=== PATIENT | female | born 1930 | race Caucasian/White ===

== ENCOUNTER 2019-04-13 20:54 | Inpatient (IN) | payer MEDICARE, OTHER ==
[~2019-04-13] VITALS: Ht 162.6 cm; Wt 47.6 kg
[2019-04-13] MEDS ORDERED: IV NORMAL SALINE 1000ML BAG 1,000 ML IV ONE (21:30)
[2019-04-13 21:35] LABS: BASO # 0.1 x10^3/uL (0.0-0.2); BASO % 1 % (0-3); EOS % 0 % (0-3); HEMATOCRIT 26.8 % (36.0-47.0); LYMPH # 0.9 x10^3/uL (1.0-4.8); LYMPH % 11 % (24-48); MEAN CORPUSCULAR HEMOGLOBIN 32 pg (25-35); MEAN CORPUSCULAR HGB CONC 34 g/dL (31-37); MEAN CORPUSCULAR VOLUME 94 fL (79-100); MONO # 0.3 x10^3/uL (0.0-1.1); MONO % 4 % (0-9); NEUT # 6.7 x10^3/uL (1.8-7.7); NEUT % 84 % (31-73); PLATELET COUNT 360 x10^3/uL (140-400); RED BLOOD COUNT 2.85 x10^6/uL (3.50-5.40); RED CELL DISTRIBUTION WIDTH 16.2 % (11.5-14.5)
[2019-04-13 21:42] LABS: CALCIUM 8.8 mg/dL (8.5-10.1); CREATININE 0.7 mg/dL (0.6-1.0); GFR 79.2; POTASSIUM 3.4 mmol/L (3.5-5.1)
--- NOTE | 2019-04-13 22:20 | PHYS DOC ---
Past Medical History Past Medical History: Seizure, Other Additional Past Medical Histor: PARKINSONS Past Surgical History: Hysterectomy, Other Additional Past Surgical Histo: COLOSTOMY Alcohol Use: None Drug Use: None Adult General Chief Complaint Chief Complaint: SEIZURE HPI HPI Patient is a 89 year old male with history of seizure disorder with recent two- week hospital stay at [facility] per epilepsy who presents with seizure episode during transport from [facility] to senior care. This is the second seizure the patient during the transportation process. After the first seizure, the patient was brought to where she was given a dose of epilepsy medication and then placed in ambulance when she had a second generalized seizure. 10 Milligrams of Versed was given by EMS and the patient was brought to [facility]. On exam, the patient's obtunded story depression and sluggish pupils. Patient wearing supplemental oxygen to maintain O2 saturation greater than 95%. She is limited based upon the patient's presentations. Additional history obtained from family members and medical record. Early member states patient seizures were fairly well-controlled prior to transfer but that the motion of the ambulance is know to triggers the patient seizures.[] Review of Systems Review of Systems ROS as per HPI All other systems were reviewed and found to be within normal limits, except as documented in this note. Current Medications Current Medications Current Medications Medications (Trade) Dose Ordered Sig/Alex Start Time Stop Time Status Last Admin Dose Admin Sodium Chloride 1,000 ml @ 1,000 mls/hr 1X ONCE 04/13/19 21:30 04/13/19 22:29 04/13/19 21:32 1,000 MLS/HR Allergies Allergies Allergies Coded Allergies Type Severity Reaction Last Updated Verified No Known Drug Allergies 04/13/19 No Physical Exam Physical Exam Constitutional: Pale, obtunded with respiratory depression.[] HENT: Normocephalic, atraumatic, bilateral external ears normal, oropharynx moist, nose normal. [] Eyes: PERRLA, EOMI, conjunctiva normal. [] Neck: Normal range of motion, no tenderness, supple. [] Cardiovascular:Heart rate regular rhythm, no murmur [] Lungs & Thorax: Respiratory depression. [] Abdomen: Bowel sounds normal, soft, no tenderness. [] Skin: Warm, dry. [] Back: No tenderness. [] Extremities: No tenderness, no edema. [] Neurologic: Obtunded, localizes pain. [] Current Patient Data Vital Signs Vital Signs Date Time Temp Pulse Resp B/P (MAP) Pulse Ox O2 Delivery O2 Flow Rate FiO2 04/13/19 20:54 98.0 75 20 113/53 (73) 99 Nasal Cannula 4.0 98.0 Lab Values Laboratory Tests Test 04/13/19 21:15 04/13/19 21:20 Glucose (Fingerstick) 89 mg/dL (70-99) White Blood Count 8.0 x10^3/uL (4.0-11.0) Red Blood Count 2.85 x10^6/uL (3.50-5.40) L Hemoglobin 9.0 g/dL (12.0-15.5) L Hematocrit 26.8 % (36.0-47.0) L Mean Corpuscular Volume 94 fL (79-100) Mean Corpuscular Hemoglobin 32 pg (25-35) Mean Corpuscular Hemoglobin Concent 34 g/dL (31-37) Red Cell Distribution Width 16.2 % (11.5-14.5) H Platelet Count 360 x10^3/uL (140-400) Neutrophils (%) (Auto) 84 % (31-73) H Lymphocytes (%) (Auto) 11 % (24-48) L Monocytes (%) (Auto) 4 % (0-9) Eosinophils (%) (Auto) 0 % (0-3) Basophils (%) (Auto) 1 % (0-3) Neutrophils # (Auto) 6.7 x10^3/uL (1.8-7.7) Lymphocytes # (Auto) 0.9 x10^3/uL (1.0-4.8) L Monocytes # (Auto) 0.3 x10^3/uL (0.0-1.1) Eosinophils # (Auto) 0.0 x10^3/uL (0.0-0.7) Basophils # (Auto) 0.1 x10^3/uL (0.0-0.2) Sodium Level 140 mmol/L (136-145) Potassium Level 3.4 mmol/L (3.5-5.1) L Chloride Level 102 mmol/L (98-107) Carbon Dioxide Level 29 mmol/L (21-32) Anion Gap 9 (6-14) Blood Urea Nitrogen 3 mg/dL (7-20) L Creatinine 0.7 mg/dL (0.6-1.0) Estimated GFR (Cockcroft-Gault) 79.2 Glucose Level 102 mg/dL (70-99) H Calcium Level 8.8 mg/dL (8.5-10.1) Troponin I Quantitative < 0.017 ng/mL (0.000-0.055) Laboratory Tests 04/13/19 21:20 Laboratory Tests 04/13/19 21:20 EKG EKG [EKG: reviewed ] Radiology/Procedures Radiology/Procedures [] Course & Med Decision Making Course & Med Decision Making Pertinent Labs and Imaging studies reviewed. (See chart for details) [Patient monitored in the emergency department for stabilization of vital signs. Medical records requested from [employer]. Labs reviewed. Will admit to the hospital service with anticipated neurology consult] Aprilon Disclaimer Dragon Disclaimer This electronic medical record was generated, in whole or in part, using a voice recognition dictation system. Departure Departure Impression: Primary Impression: Breakthrough seizure Disposition: ADMITTED INPATIENT Condition: STABLE Referrals: AMBAR FRANK (PCP) KEANU GORMAN DO Apr 13, 2019 22:20
[2019-04-13] MEDS ORDERED: ONDANSETRON PF 4 MG/2 ML VIAL. IV PRN (22:45)
[2019-04-13] MEDS: IV NORMAL SALINE 1000ML BAG 1,000 ML IV SCH (23:00)
--- NOTE | 2019-04-13 23:30 | NUR ---
The patient, PABLO LUCIA, 89 y/o, F admitted by LETY RODRÍGUEZ MD, was given written information regarding hospital policies, unit procedures and contact persons.
[2019-04-14 00:09] VITALS: BP 98/38
[2019-04-14] MEDS ORDERED: LEVO50TA PO (01:54)
[2019-04-14] MEDS ORDERED: CLOR3.75 PO (01:54)
[2019-04-14] MEDS ORDERED: LEXAPRO10 MG PO (01:54)
[2019-04-14] MEDS ORDERED: CEPH-263 PO (01:54)
[2019-04-14] MEDS ORDERED: METO-239 PO (01:54)
[2019-04-14] MEDS ORDERED: MEMA10TA PO (01:54)
[2019-04-14] MEDS ORDERED: CARB1TAB22 PO (01:54)
[2019-04-14] MEDS ORDERED: DONE10TA61 PO (01:54)
--- NOTE | 2019-04-14 02:41 | RAD ---
AP chest x-ray HISTORY: Unresponsive, hypoxia. FINDINGS: Heart size normal. Aortic arch calcified plaque. Coarsened diffuse pulmonary interstitial markings. No pneumothorax, pulmonary opacities or pleural effusions. Bones are unremarkable. IMPRESSION: Diffuse pulmonary coarse interstitial markings may represent mild interstitial edema, atypical infection or chronic interstitial lung disease. Electronically signed by: Saturnino Rangel MD (04/14/2019 2:37 AM) [facility]
[2019-04-14 03:46] VITALS: BP 124/47
[2019-04-14] MEDS ORDERED: LACO100T PO (03:56)
[2019-04-14 07:49] LABS: BASO # 0.1 x10^3/uL (0.0-0.2); BASO % 1 % (0-3); EOS # 0.1 x10^3/uL (0.0-0.7); EOS % 1 % (0-3); HEMATOCRIT 28.9 % (36.0-47.0); HEMOGLOBIN 9.3 g/dL (12.0-15.5); LYMPH % 16 % (24-48); MEAN CORPUSCULAR HEMOGLOBIN 31 pg (25-35); MEAN CORPUSCULAR HGB CONC 32 g/dL (31-37); MEAN CORPUSCULAR VOLUME 96 fL (79-100); MONO # 0.4 x10^3/uL (0.0-1.1); MONO % 6 % (0-9); NEUT # 5.1 x10^3/uL (1.8-7.7); NEUT % 76 % (31-73); PLATELET COUNT 348 x10^3/uL (140-400); RED BLOOD COUNT 3.01 x10^6/uL (3.50-5.40); RED CELL DISTRIBUTION WIDTH 16.4 % (11.5-14.5); WHITE BLOOD COUNT 6.7 x10^3/uL (4.0-11.0)
[2019-04-14 07:50] VITALS: BP 148/54
[2019-04-14] MEDS ORDERED: ONDANSETRON PF 4 MG/2 ML VIAL. IV PRN (08:00)
[2019-04-14 08:02] LABS: CALCIUM 8.8 mg/dL (8.5-10.1); CREATININE 0.5 mg/dL (0.6-1.0); GFR 116.7; POTASSIUM 3.5 mmol/L (3.5-5.1)
--- NOTE | 2019-04-14 08:22 | PDOC1 ---
History and Physical Date of Admission Date of Admission DATE: 04/14/19 TIME: 08:01 Identification/Chief Complaint Chief Complaint Hypoxia, seizures Source Source: Caregiver, Chart review, Patient History of Present Illness History of Present Illness Ms Recio is an 89 year old female with history of new recent seizure disorder, diverticulitis with recent bowel perforation and diverting colostomy in the past year, and Parkinson disease who presented to ED on 04/13/19 in the evening with acute hypoxia requiring 4L NCO2 to maintain 90% O2 saturations and reported seizure activity en-route to SNF. She was admitted to [facility] and underwent long-term video EEG monitoring showing several electrographic seizures characterized by facial twitching, left head and eye deviation with progression to more generalized tonic-clonic movements, lasting as long as 5 minutes requiring lorazepam. She continued to have seizures on levetiracetam 1500 mg twice a day and was subsequently switched to lacosamide 100 mg twice a day. She is no longer on the levetiracetam. She was sent to [facility], and then was transferred to [facility] [place] to be closer to family and had a seizure en route. This is the second seizure the patient during the transportation process. After the first seizure, the patient was brought to where she was given a dose of Vimpat oral and then placed in ambulance when she had a second generalized seizure. 10 mg midazolam administered by EMS en-route to [facility]. ED physician found patient obtunded with respiratory depression and sluggish pupils. Additional history obtained from family members and medical record. Family member states patient seizures were fairly well-controlled prior to transfer but that apparently motion of the ambulance is know to triggers the patient seizures. In ED found with CXR showing coarse interstitial markings, K of 3.4, Hb 9, troponin negative. K replaced. Patient is awakening well, still doesn't have an appetite. Past Medical History Cardiovascular: No pertinent hx Pulmonary: No pertinent hx CENTRAL NERVOUS SYSTEM: Other (Parkinson) GI: No pertinent hx Heme/Onc: No pertinent hx Hepatobiliary: No pertinent hx Psych: No pertinent hx Rheumatologic: No pertinent hx Infectious disease: No pertinent hx ENT: No pertinent hx Renal/: No pertinent hx Endocrine: No pertinent hx Dermatology: No pertinent hx Past Surgical History Past Surgical History: Hysterectomy, Colon Resection (With colostomy) Family History Family History: Family History Unknown Social History Smoke: No ALCOHOL: none Drugs: None Current Medications Current Medications Current Medications Sodium Chloride 1,000 ml @ 1,000 mls/hr 1X ONCE IV Last administered on 04/13/19at 21:32; Start 04/13/19 at 21:30; Stop 04/13/19 at 22:29; Status DC Ondansetron HCl (Zofran) 4 mg PRN Q8HRS PRN IV NAUSEA/VOMITING; Start 04/13/19 at 22:45; Stop 04/14/19 at 22:44 Sodium Chloride 1,000 ml @ 75 mls/hr [id number] IV Last administered on 04/13/19at 23:00; Start 04/13/19 at 22:45; Stop 04/14/19 at 22:44 Lacosamide 100 mg/ Dextrose 60 ml @ 120 mls/hr BID IV ; Start 04/14/19 at 09:00 Lorazepam (Ativan Inj) 2 mg 1X PRN IV seizure; Start 04/13/19 at 22:45 Active Scripts Active Reported Vimpat (Lacosamide) 100 Mg Tablet 100 Mg PO BID Synthroid (Levothyroxine Sodium) 50 Mcg Tablet 50 Mcg PO DAILYAC Metoprolol Succinate ( Xl ) (Metoprolol Succinate) 25 Mg Tab.er.24h 1 Tab PO DAILY 12.5 DAILY Namenda (Memantine Hcl) 10 Mg Tablet 1 Tab PO BID Lexapro (Escitalopram Oxalate) 10 Mg Tablet 1 Tab PO DAILY Aricept (Donepezil Hcl) 10 Mg Tablet 1 Tab PO QHS Clorazepate Dipotassium 3.75 Mg Tablet 3.75 Mg PO PRN PRN Keflex (Cephalexin) 250 Mg Capsule 1 Cap PO TID Carbidopa-Levodopa 25-100 Tab (Carbidopa/Levodopa) 1 Each Tablet 1 Each PO 4XDAY 1 TABLET 4 TIMES DAILY Allergies Allergies: Coded Allergies: No Known Drug Allergies (Unverified , 04/13/19) ROS General: YES: Fatigue, Malaise, Appetite; No: Chills, Night Sweats, Other PSYCHOLOGICAL ROS: YES: Depression, Disorientation, Memory difficulties; No: Anxiety, Behavioral Disorder, Concentration difficultie, Decreased libido, Hallucinations, Hostility, Irritablity, Mood Swings, Obsessive thoughts, Physical abuse, Sexual abuse, Sleep disturbances, Suicidal ideation, Other Eyes: No Blurry vision, No Decreased vision, No Double vision, No Dry eyes, No Excessive tearing, No Eye Pain, No Itchy Eyes, No Loss of vision, No P hotophobia, No Scotomata, No Uses contacts, No Uses glasses, No Other HEENT: No: Heacaches, Visual Changes, Hearing change, Nasal congestion, Nasal discharge, Oral lesions, Sinus pain, Sore Throat, Epistaxis, Sneezing, Snoring, Tinnitus, Vertigo, Vocal changes, Other ALLERGY AND IMMUNOLOGY: No: Hives, Insect Bite Sensitivity, Itchy/Watery Eyes, Nasal Congestion, Post Nasal Drip, Seasonal Allergies, Other Hematological and Lymphatic: No: Bleeding Problems, Blood Clots, Blood Transfusions, Brusing, Night Sweats, Pallor, Swollen Lymph Nodes, Other ENDOCRINE: No: Breast Changes, Galactorrhea, Hair Pattern Changes, Hot Flashes, Malaise/lethargy, Mood Swings, Palpitations, Polydipsia/polyuria, Skin Changes, Temperature Intolerance, Unexpected Weight Changes, Other Breast: No New/Changing Breast Lumps, No Nipple changes, No Nipple discharge, No Other Respiratory: No: Cough, Hemoptysis, Orthopnea, Pleuritic Pain, Shortness of breath, SOB with excertion, Sputum Changes, Stridor, Tachypnea, Wheezing, Other Cardiovascular: No Chest Pain, No Palpitations, No Orthopnea, No Paroxysmal Noc. Dyspnea, No Edema, No Lt Headedness, No Other Gastrointestinal: No Nausea, No Vomiting, No Abdominal Pain, No Diarrhea, No Constipation, No Melena, No Hematochezia, No Other Genitourinary: No Dysuria, No Frequency, No Incontinence, No Hematuria, No Retention, No Discharge, No Urgency, No Pain, No Flank Pain, No Other, No , No , No , No , No , No , No Musculoskeletal: Yes Gait Disturbance; No Joint Pain, No Joint Stiffness, No Joint Swelling, No Muscle Pain, No Muscular Weakness, No Pain In:, No Swelling In:, No Other Neurological: Yes Confusion, Yes Gait Disturbance, Yes Memory Loss, Yes Seizures, Yes Tremors; No Behavorial Changes, No Bowel/Bladder ControlChng, No Dizziness, No Headaches, No Impaired Coord/balance, No Numbness/Tingling, No Speech Problems, No Visual Changes, No Weakness, No Other Skin: No Dry Skin, No Eczema, No Hair Changes, No Lumps, No Mole Changes, No Mottling, No Nail Changes, No Pruritus, No Rash, No Skin Lesion Changes, No Other, No Acne Physical Exam General: Alert, Cooperative, No acute distress HEENT: Atraumatic, PERRLA, EOMI, Mucous membr. moist/pink Lungs: Clear to auscultation, Normal air movement Heart: S1S2, RRR, no gallops, no murmurs Abdomen: Normal bowel sounds, Soft, No tenderness, No hepatosplenomegaly, No masses Extremities: No clubbing, No cyanosis, No edema, Normal pulses, No tenderness/swelling Skin: No rashes, No breakdown, No significant lesion Neuro: Normal gait, Normal speech, Strength at 5/5 X4 ext, Normal tone, Sensation intact, Cranial nerves 3-12 NL, Reflexes 2+ Psych/Mental Status: Mental status NL, Mood NL Vitals Vitals Vital Signs Date Time Temp Pulse Resp B/P (MAP) Pulse Ox O2 Delivery O2 Flow Rate FiO2 04/14/19 03:46 97.5 62 18 124/47 (72) 99 Room Air 97.5 04/13/19 23:30 4.0 Labs Labs Laboratory Tests Test 04/13/19 21:15 04/13/19 21:20 Glucose (Fingerstick) 89 mg/dL (70-99) White Blood Count 8.0 x10^3/uL (4.0-11.0) Red Blood Count 2.85 x10^6/uL (3.50-5.40) Hemoglobin 9.0 g/dL (12.0-15.5) Hematocrit 26.8 % (36.0-47.0) Mean Corpuscular Volume 94 fL (79-100) Mean Corpuscular Hemoglobin 32 pg (25-35) Mean Corpuscular Hemoglobin Concent 34 g/dL (31-37) Red Cell Distribution Width 16.2 % (11.5-14.5) Platelet Count 360 x10^3/uL (140-400) Neutrophils (%) (Auto) 84 % (31-73) Lymphocytes (%) (Auto) 11 % (24-48) Monocytes (%) (Auto) 4 % (0-9) Eosinophils (%) (Auto) 0 % (0-3) Basophils (%) (Auto) 1 % (0-3) Neutrophils # (Auto) 6.7 x10^3/uL (1.8-7.7) Lymphocytes # (Auto) 0.9 x10^3/uL (1.0-4.8) Monocytes # (Auto) 0.3 x10^3/uL (0.0-1.1) Eosinophils # (Auto) 0.0 x10^3/uL (0.0-0.7) Basophils # (Auto) 0.1 x10^3/uL (0.0-0.2) Sodium Level 140 mmol/L (136-145) Potassium Level 3.4 mmol/L (3.5-5.1) Chloride Level 102 mmol/L (98-107) Carbon Dioxide Level 29 mmol/L (21-32) Anion Gap 9 (6-14) Blood Urea Nitrogen 3 mg/dL (7-20) Creatinine 0.7 mg/dL (0.6-1.0) Estimated GFR (Cockcroft-Gault) 79.2 Glucose Level 102 mg/dL (70-99) Calcium Level 8.8 mg/dL (8.5-10.1) Troponin I Quantitative < 0.017 ng/mL (0.000-0.055) Laboratory Tests Test 04/13/19 21:15 04/13/19 21:20 Glucose (Fingerstick) 89 mg/dL (70-99) White Blood Count 8.0 x10^3/uL (4.0-11.0) Red Blood Count 2.85 x10^6/uL (3.50-5.40) Hemoglobin 9.0 g/dL (12.0-15.5) Hematocrit 26.8 % (36.0-47.0) Mean Corpuscular Volume 94 fL (79-100) Mean Corpuscular Hemoglobin 32 pg (25-35) Mean Corpuscular Hemoglobin Concent 34 g/dL (31-37) Red Cell Distribution Width 16.2 % (11.5-14.5) Platelet Count 360 x10^3/uL (140-400) Neutrophils (%) (Auto) 84 % (31-73) Lymphocytes (%) (Auto) 11 % (24-48) Monocytes (%) (Auto) 4 % (0-9) Eosinophils (%) (Auto) 0 % (0-3) Basophils (%) (Auto) 1 % (0-3) Neutrophils # (Auto) 6.7 x10^3/uL (1.8-7.7) Lymphocytes # (Auto) 0.9 x10^3/uL (1.0-4.8) Monocytes # (Auto) 0.3 x10^3/uL (0.0-1.1) Eosinophils # (Auto) 0.0 x10^3/uL (0.0-0.7) Basophils # (Auto) 0.1 x10^3/uL (0.0-0.2) Sodium Level 140 mmol/L (136-145) Potassium Level 3.4 mmol/L (3.5-5.1) Chloride Level 102 mmol/L (98-107) Carbon Dioxide Level 29 mmol/L (21-32) Anion Gap 9 (6-14) Blood Urea Nitrogen 3 mg/dL (7-20) Creatinine 0.7 mg/dL (0.6-1.0) Estimated GFR (Cockcroft-Gault) 79.2 Glucose Level 102 mg/dL (70-99) Calcium Level 8.8 mg/dL (8.5-10.1) Troponin I Quantitative < 0.017 ng/mL (0.000-0.055) Images Images CXR - Diffuse pulmonary coarse interstitial markings may represent mild interstitial edema, atypical infection or chronic interstitial lung disease. VTE Prophylaxis Ordered VTE Prophylaxis Devices: No VTE Pharmacological Prophylaxi: Yes Assessment/Plan Assessment/Plan A/P: Acute hypoxic respiratory failure - with abnormal CXR, will r/o infection, checked procalcitonin. BNP only mildly elevated. Wean O2 as tolerated. Likely this was 2/2 midazolam administration Seizure - witness by EMS. Loaded with vimpat. Neurology consulted by ED. Does not sound like status epilepticus. Seizure activity can be difficult to assess with h/o Parkinson disease as well Parkinson disease - on QID sinemet as well as daily donepezil and memantine H/o diverticulitis with recent bowel perforation and diverting colostomy - ostomy output and care are WNL Hypokalemia - replaced oral and IV H/o C difficile - no further diarrhea, monitor FEN - General diet pending [employer]PERATOR evaluation PPX - lovenox DNR/DNI signed paperwork in house Dispo - will await neurology evaluation. I think further delaying her trip to SNF will expose her to hospital acquired infections, particularly with her history of c. difficile. I have discussed with her daughter that given her experience with EMS the past 2 transport cycles that she must lay her mother back and turn her head, wait for seizure activity to pass and will give lorazepam IA for seizures lasting greater than 5 minutes. She will be ok for private transport to SNF if neurology agrees. KEYANNA HARO MD Apr 14, 2019 08:22
[2019-04-14 08:34] LABS: ALBUMIN 2.5 g/dL (3.4-5.0); ALK PHOS 82 U/L (46-116); AST (SGOT) 13 U/L (15-37); DIRECT BILIRUBIN 0.1 mg/dL (0.0-0.2); TOTAL BILIRUBIN 0.3 mg/dL (0.2-1.0); TOTAL PROTEIN 6.5 g/dL (6.4-8.2)
[2019-04-14 08:35] LABS: ALT (SGPT) < 6 U/L (14-59)
[2019-04-14] MEDS ORDERED: LACOSAMIDE 100 MG in IV DEXTROSE 5% 50 ML IV SCH (09:00)
[2019-04-14] MEDS ORDERED: METOPROLOL SUCC 24HR ER 25 MG TAB.ER.24H. PO SCH (09:00)
[2019-04-14] MEDS ORDERED: LACOSAMIDE 50 MG TABLET PO SCH (09:00)
[2019-04-14] MEDS ORDERED: CITALOPRAM 20 MG TABLET. PO SCH (09:00)
[2019-04-14] MEDS ORDERED: MEMANTINE 10 MG TABLET. PO SCH (09:00)
[2019-04-14] MEDS: POTASSIUM CHLORIDE 10MEQ 100 ML IV SCH ×2 (09:52→11:06)
[2019-04-14] MEDS ORDERED: LEVOTHYROXINE 50 MCG TABLET PO SCH (10:30)
--- NOTE | 2019-04-14 10:47 | EKG ---
[facility] [address] [place] [address] Test Date: 2019-04-13 Test Time: 21:01:01 Pat Name: PABLO LUCIA Department: Room: Gender: F [employer] Architect: CIERRA ER : [id number] Requested By: KEANU GORMAN Order Number: [id number] Reading MD: Measurements Intervals [place] Rate: 80 P: 49 [place]: 158 QRS: -30 QRSD: 98 T: 56 QT: 440 QTc: 511 Interpretive Statements SINUS RHYTHM ABNORMAL LEFT AXIS DEVIATION PROLONGED QT ABNORMAL ECG No previous ECG available for comparison
[2019-04-14 11:00] VITALS: BP 154/57
[2019-04-14] MEDS: CARBIDOPA/LEVODOPA 25/100MG TABLET PO SCH ×2 (11:00→13:55)
[2019-04-14 11:01] VITALS: BP 148/54
[2019-04-14] MEDS: IV NORMAL SALINE 1000ML BAG 1,000 ML IV SCH (12:05)
--- NOTE | 2019-04-14 12:07 | PDOC2 ---
NEUROLOGY CONSULT Date of Admission Date of Admission DATE: 04/14/19 TIME: 11:58 Reason for Consult Reason for Consult: seizures Referring Physician Referring Physician: Dr. Kingston Source Source: Caregiver (daughter), Chart review, Patient History of Present Illness History of Present Illness The patient is an 89-year-old right-handed female who is being transported from [facility] to her [place] [facility] and she had a seizure. She had a seizure just after leaving [facility] and was brought to where they gave her some Versed and sent her on her way, but then she had another seizure. She received midazolam in the ambulance and was brought here. She has had no further seizures. Review of records from [facility] shows that the patient has history of Parkinson's and dementia. She was admitted to [facility] and underwent long-term video EEG monitoring showing several electrographic seizures characterized by facial twitching, left head and eye deviation with progression to more generalized tonic-clonic movements, lasting as long as 5 minutes requiring lorazepam. She continued to have seizures on levetiracetam 1500 mg twice a day and was subsequently switched to lacosamide 100 mg twice a day. She is no longer on the levetiracetam. She was sent to [facility], and then was transferred to [facility] to be closer to family and had a seizure en route. She was brought to the [facility] emergency department and spent 2 days there and was discharged to the [place] [facility] yesterday. There is no history of stroke. There is no history of recent head injury. Past Medical History Cardiovascular: HTN CENTRAL NERVOUS SYSTEM: Dementia, Seizure, Other (Parkinson's) GI: Other (diverticulitis) Renal/: UTI, Urinary Incontinence Past Surgical History Past Surgical History: Hysterectomy, Other (bowel surgery) Family History Family History: No pertinent hx Social History Social History , [place] [facility] resident, no alcohol or tobacco Current Medications Current Medications Current Medications Sodium Chloride 1,000 ml @ 1,000 mls/hr 1X ONCE IV Last administered on 04/13/19at 21:32; Start 04/13/19 at 21:30; Stop 04/13/19 at 22:29; Status DC Ondansetron HCl (Zofran) 4 mg PRN Q8HRS PRN IV NAUSEA/VOMITING; Start 04/13/19 at 22:45; Stop 04/14/19 at 08:01; Status DC Sodium Chloride 1,000 ml @ 75 mls/hr [id number] IV Last administered on 04/13/19at 23:00; Start 04/13/19 at 22:45; Stop 04/14/19 at 22:44 Lacosamide 100 mg/ Dextrose 60 ml @ 120 mls/hr BID IV ; Start 04/14/19 at 09:00; Stop 04/14/19 at 08:12; Status DC Lorazepam (Ativan Inj) 2 mg 1X PRN IV seizure; Start 04/13/19 at 22:45 Ondansetron HCl (Zofran) 4 mg PRN Q6HRS PRN IV NAUSEA/VOMITING; Start 04/14/19 at 08:00 Carbidopa/Levodopa (Sinemet 25/100) 1 tab QID PO Last administered on 04/14/19at 11:09; Start 04/14/19 at 09:00 Donepezil HCl (Aricept) 10 mg QHS PO ; Start 04/14/19 at 21:00 Levothyroxine Sodium (Synthroid) 50 mcg DAILY06 PO Last administered on 04/14/19at 11:09; Start 04/14/19 at 10:30 Memantine (Namenda) 10 mg BID PO Last administered on 04/14/19at 11:09; Start 04/14/19 at 09:00 Metoprolol Succinate (Toprol Xl) 25 mg DAILY PO Last administered on 04/14/19at 11:09; Start 04/14/19 at 09:00 Citalopram Hydrobromide (CeleXA) 20 mg DAILY PO Last administered on 04/14/19at 11:09; Start 04/14/19 at 09:00 Lacosamide (Vimpat) 100 mg BID PO Last administered on 04/14/19at 11:09; Start 04/14/19 at 09:00 Potassium Chloride/Water 100 ml @ 100 mls/hr Q1H IV Last administered on 04/14/19at 11:09; Start 04/14/19 at 08:00; Stop 04/14/19 at 09:59; Status DC Active Scripts Active Reported Vimpat (Lacosamide) 100 Mg Tablet 100 Mg PO BID Synthroid (Levothyroxine Sodium) 50 Mcg Tablet 50 Mcg PO DAILYAC Metoprolol Succinate ( Xl ) (Metoprolol Succinate) 25 Mg Tab.er.24h 1 Tab PO DAILY 12.5 DAILY Namenda (Memantine Hcl) 10 Mg Tablet 1 Tab PO BID Lexapro (Escitalopram Oxalate) 10 Mg Tablet 1 Tab PO DAILY Aricept (Donepezil Hcl) 10 Mg Tablet 1 Tab PO QHS Clorazepate Dipotassium 3.75 Mg Tablet 3.75 Mg PO PRN PRN Keflex (Cephalexin) 250 Mg Capsule 1 Cap PO TID Carbidopa-Levodopa 25-100 Tab (Carbidopa/Levodopa) 1 Each Tablet 1 Each PO 4XDAY 1 TABLET 4 TIMES DAILY Allergies Allergies: Coded Allergies: No Known Drug Allergies (Unverified , 04/13/19) ROS Review of System Negative for fever, chills, weight loss, shortness of breath, chest pain, indigestion, hematochezia, melena, and dysuria. Full 14-point review of systems is negative. Physical Exam Physical Examination General: Well-developed, well-nourished white female in no acute distress HEENT: Normocephalic and�atraumatic. Temporal arteries�pulsatile and nontender.� Neck: Supple without bruit, no meningismus� Musculoskeletal: Stability:�see neurologic. Gait exam:�see neurologic. Tone:�see neurologic.�Stre ngth:�see neurologic.� Neurological: Mental Status:�orientation, memory, attention span/concentration, language, fund of knowledge; oriented only to name, follows simple commands. Cranial Nerves:�Pupils equal and reactive to light, extraocular movements are�intact, visual lares are full to confrontation. Facial sensation is normal. There is no facial asymmetry. Vestibulo-ocular reflex is intact. Palate elevates and tongue protrudes in midline. All other cranial related problems are negative except as mentioned before.�Reflexes:�2+ and symmetric with flexor plantar responses. Motor:�4/5 strength with normal tone and bulk. Coordination:�Finger-nose finger and cxrv-[id number] testing are normal. Rapid alternating movements and fine finger movements are intact. She has a "yes" head tremor. Gait:�Not tested. Sensory:�Normal pinprick, vibration, light touch, proprioception.� Vitals VITALS Vital Signs Date Time Temp Pulse Resp B/P (MAP) Pulse Ox O2 Delivery O2 Flow Rate FiO2 04/14/19 11:09 64 148/54 04/14/19 07:50 98.5 18 94 Room Air 98.5 04/13/19 23:30 4.0 Labs Labs Laboratory Tests Test 04/13/19 21:15 04/13/19 21:20 04/14/19 07:25 04/14/19 08:45 Glucose (Fingerstick) 89 mg/dL (70-99) White Blood Count 8.0 x10^3/uL (4.0-11.0) 6.7 x10^3/uL (4.0-11.0) Red Blood Count 2.85 x10^6/uL (3.50-5.40) 3.01 x10^6/uL (3.50-5.40) Hemoglobin 9.0 g/dL (12.0-15.5) 9.3 g/dL (12.0-15.5) Hematocrit 26.8 % (36.0-47.0) 28.9 % (36.0-47.0) Mean Corpuscular Volume 94 fL (79-100) 96 fL (79-100) Mean Corpuscular Hemoglobin 32 pg (25-35) 31 pg (25-35) Mean Corpuscular Hemoglobin Concent 34 g/dL (31-37) 32 g/dL (31-37) Red Cell Distribution Width 16.2 % (11.5-14.5) 16.4 % (11.5-14.5) Platelet Count 360 x10^3/uL (140-400) 348 x10^3/uL (140-400) Neutrophils (%) (Auto) 84 % (31-73) 76 % (31-73) Lymphocytes (%) (Auto) 11 % (24-48) 16 % (24-48) Monocytes (%) (Auto) 4 % (0-9) 6 % (0-9) Eosinophils (%) (Auto) 0 % (0-3) 1 % (0-3) Basophils (%) (Auto) 1 % (0-3) 1 % (0-3) Neutrophils # (Auto) 6.7 x10^3/uL (1.8-7.7) 5.1 x10^3/uL (1.8-7.7) Lymphocytes # (Auto) 0.9 x10^3/uL (1.0-4.8) 1.0 x10^3/uL (1.0-4.8) Monocytes # (Auto) 0.3 x10^3/uL (0.0-1.1) 0.4 x10^3/uL (0.0-1.1) Eosinophils # (Auto) 0.0 x10^3/uL (0.0-0.7) 0.1 x10^3/uL (0.0-0.7) Basophils # (Auto) 0.1 x10^3/uL (0.0-0.2) 0.1 x10^3/uL (0.0-0.2) Sodium Level 140 mmol/L (136-145) 144 mmol/L (136-145) Potassium Level 3.4 mmol/L (3.5-5.1) 3.5 mmol/L (3.5-5.1) Chloride Level 102 mmol/L (98-107) 108 mmol/L (98-107) Carbon Dioxide Level 29 mmol/L (21-32) 30 mmol/L (21-32) Anion Gap 9 (6-14) 6 (6-14) Blood Urea Nitrogen 3 mg/dL (7-20) 3 mg/dL (7-20) Creatinine 0.7 mg/dL (0.6-1.0) 0.5 mg/dL (0.6-1.0) Estimated GFR (Cockcroft-Gault) 79.2 116.7 Glucose Level 102 mg/dL (70-99) 77 mg/dL (70-99) Calcium Level 8.8 mg/dL (8.5-10.1) 8.8 mg/dL (8.5-10.1) Troponin I Quantitative < 0.017 ng/mL (0.000-0.055) Magnesium Level 1.8 mg/dL (1.8-2.4) Iron Level 146 ug/dL (50-170) Total Iron Binding Capacity 166 ug/dL (250-450) Iron Saturation 88 % (15-34) Ferritin 482 ng/mL (8-252) Total Bilirubin 0.3 mg/dL (0.2-1.0) Direct Bilirubin 0.1 mg/dL (0.0-0.2) Aspartate Amino Transf (AST/SGOT) 13 U/L (15-37) Alanine Aminotransferase (ALT/SGPT) < 6 U/L (14-59) Alkaline Phosphatase 82 U/L (46-116) QX-Vvs-A-Type Natriuretic Peptide 1616 pg/mL (0-449) Total Protein 6.5 g/dL (6.4-8.2) Albumin 2.5 g/dL (3.4-5.0) Thyroid Stimulating Hormone (TSH) 0.656 uIU/mL (0.358-3.74) Lactic Acid Level 0.5 mmol/L (0.4-2.0) Laboratory Tests Test 04/13/19 21:15 04/13/19 21:20 04/14/19 07:25 04/14/19 08:45 Glucose (Fingerstick) 89 mg/dL (70-99) White Blood Count 8.0 x10^3/uL (4.0-11.0) 6.7 x10^3/uL (4.0-11.0) Red Blood Count 2.85 x10^6/uL (3.50-5.40) 3.01 x10^6/uL (3.50-5.40) Hemoglobin 9.0 g/dL (12.0-15.5) 9.3 g/dL (12.0-15.5) Hematocrit 26.8 % (36.0-47.0) 28.9 % (36.0-47.0) Mean Corpuscular Volume 94 fL (79-100) 96 fL (79-100) Mean Corpuscular Hemoglobin 32 pg (25-35) 31 pg (25-35) Mean Corpuscular Hemoglobin Concent 34 g/dL (31-37) 32 g/dL (31-37) Red Cell Distribution Width 16.2 % (11.5-14.5) 16.4 % (11.5-14.5) Platelet Count 360 x10^3/uL (140-400) 348 x10^3/uL (140-400) Neutrophils (%) (Auto) 84 % (31-73) 76 % (31-73) Lymphocytes (%) (Auto) 11 % (24-48) 16 % (24-48) Monocytes (%) (Auto) 4 % (0-9) 6 % (0-9) Eosinophils (%) (Auto) 0 % (0-3) 1 % (0-3) Basophils (%) (Auto) 1 % (0-3) 1 % (0-3) Neutrophils # (Auto) 6.7 x10^3/uL (1.8-7.7) 5.1 x10^3/uL (1.8-7.7) Lymphocytes # (Auto) 0.9 x10^3/uL (1.0-4.8) 1.0 x10^3/uL (1.0-4.8) Monocytes # (Auto) 0.3 x10^3/uL (0.0-1.1) 0.4 x10^3/uL (0.0-1.1) Eosinophils # (Auto) 0.0 x10^3/uL (0.0-0.7) 0.1 x10^3/uL (0.0-0.7) Basophils # (Auto) 0.1 x10^3/uL (0.0-0.2) 0.1 x10^3/uL (0.0-0.2) Sodium Level 140 mmol/L (136-145) 144 mmol/L (136-145) Potassium Level 3.4 mmol/L (3.5-5.1) 3.5 mmol/L (3.5-5.1) Chloride Level 102 mmol/L (98-107) 108 mmol/L (98-107) Carbon Dioxide Level 29 mmol/L (21-32) 30 mmol/L (21-32) Anion Gap 9 (6-14) 6 (6-14) Blood Urea Nitrogen 3 mg/dL (7-20) 3 mg/dL (7-20) Creatinine 0.7 mg/dL (0.6-1.0) 0.5 mg/dL (0.6-1.0) Estimated GFR (Cockcroft-Gault) 79.2 116.7 Glucose Level 102 mg/dL (70-99) 77 mg/dL (70-99) Calcium Level 8.8 mg/dL (8.5-10.1) 8.8 mg/dL (8.5-10.1) Troponin I Quantitative < 0.017 ng/mL (0.000-0.055) Magnesium Level 1.8 mg/dL (1.8-2.4) Iron Level 146 ug/dL (50-170) Total Iron Binding Capacity 166 ug/dL (250-450) Iron Saturation 88 % (15-34) Ferritin 482 ng/mL (8-252) Total Bilirubin 0.3 mg/dL (0.2-1.0) Direct Bilirubin 0.1 mg/dL (0.0-0.2) Aspartate Amino Transf (AST/SGOT) 13 U/L (15-37) Alanine Aminotransferase (ALT/SGPT) < 6 U/L (14-59) Alkaline Phosphatase 82 U/L (46-116) MX-Cvs-F-Type Natriuretic Peptide 1616 pg/mL (0-449) Total Protein 6.5 g/dL (6.4-8.2) Albumin 2.5 g/dL (3.4-5.0) Thyroid Stimulating Hormone (TSH) 0.656 uIU/mL (0.358-3.74) Lactic Acid Level 0.5 mmol/L (0.4-2.0) Assessment/Plan Assessment/Plan Impression: Intractable generalized convulsive epilepsy, she has been seizure-free so far here. Daughter thinks that the ambulance ride stimulates her and causes the seizures. Her tremor on examination is more consistent with essential tremor and I find no evidence of Parkinson's, but I'm not going to stop any of her Parkinson's medications. We need to keep in mind that any seizure activity seen in the ambulance could've been a tremor, not a seizure. Recommendations: I discussed with the patient's daughter, I think it's okay to go ahead and proceed with the rest of her transfer to the [place] [facility]. Follow-up with her neurologist at [facility]. Continue current medications. Thank you for letting me help with the patient's care. AKIRA GILL MD Apr 14, 2019 12:06
[2019-04-14] MEDS ORDERED: LORA1TAB PO (12:53)
--- NOTE | 2019-04-14 12:57 | SNU/HH DC ---
DISCHARGE ORDERS DISCHARGE INFORMATION: DISCHARGE DATE: Apr 14, 2019 FINAL DIAGNOSIS Breakthrough seizure CONDITION ON DISCHARGE: Stable CODE STATUS: Code Status: DNR/DNI PRISON: SNF STAY <30 DAYS: Yes POST DISCHARGE ORDERS: ACTIVITY ORDERS: No restrictions, Other, see below (Seizure precautions) WEIGHT BEARING STATUS: No restrictions DIET AFTER DISCHARGE: Regular OTHER ORDERS: Daily colostomy care TREATMENT/EQUIPMENT ORDERS: Physical Therapy For: Evalulation/Treatment Occupational Therapy For: Evaluation/Treatment DISCHARGE MEDICATIONS: Home Meds Active Scripts Lorazepam (LORAZEPAM) 1 Mg Tablet, 1 TAB PO PRN PRN for seizure > 5 MIN for 30 Days, #10 TAB 2 Refills ONLY ADMINISTER PER RECTUM FOR SEIZURE LASTING GREATER THAN 5 MINUTES Prov:KEYANNA HARO MD 04/14/19 Reported Medications Lacosamide (VIMPAT) 100 Mg Tablet, 100 MG PO BID for seizures, TAB 04/14/19 Levothyroxine Sodium (SYNTHROID) 50 Mcg Tablet, 50 MCG PO DAILYAC for THYROID SUPPLEMENT, #30 TAB 0 Refills 04/14/19 Metoprolol Succinate (METOPROLOL SUCCINATE ( XL )) 25 Mg Tab.er.24h, 1 TAB PO DAILY for HTN, #30 TAB 5 Refills 12.5 DAILY 04/14/19 Memantine Hcl (NAMENDA) 10 Mg Tablet, 1 TAB PO BID for DEMENTIA, #180 TAB 1 Refill 04/14/19 Escitalopram Oxalate (LEXAPRO) 10 Mg Tablet, 1 TAB PO DAILY for SEIZURES, #90 TAB 3 Refills 04/14/19 Donepezil Hcl (ARICEPT) 10 Mg Tablet, 1 TAB PO QHS for DIMENTIA, #30 TAB 5 Refills 04/14/19 Carbidopa/Levodopa (CARBIDOPA-LEVODOPA 25-100 TAB) 1 Each Tablet, 1 EACH PO 4XDAY for parkinsons, TAB 1 TABLET 4 TIMES DAILY 04/14/19 Discontinued Reported Medications Clorazepate Dipotassium (CLORAZEPATE DIPOTASSIUM) 3.75 Mg Tablet, 3.75 MG PO PRN PRN for SEIZURES, TAB 04/14/19 Cephalexin (KEFLEX) 250 Mg Capsule, 1 CAP PO TID for UTI, #21 CAP 04/14/19 KEYANNA HARO MD Apr 14, 2019 12:57
--- NOTE | 2019-04-14 13:00 | PDOC3 ---
Discharge Summary Visit Information Date of Admission: Apr 13, 2019 Date of Discharge: Apr 14, 2019 Admitting Diagnosis: Breakthrough seizure, hypoxia Brief Hospital Course Allergies Allergies Coded Allergies Type Severity Reaction Last Updated Verified No Known Drug Allergies 04/13/19 No Vital Signs Vital Signs Date Time Temp Pulse Resp B/P (MAP) Pulse Ox O2 Delivery O2 Flow Rate FiO2 04/14/19 11:09 64 148/54 04/14/19 07:50 98.5 18 94 Room Air 98.5 04/13/19 23:30 4.0 Lab Results Laboratory Tests Test 04/13/19 21:15 04/13/19 21:20 04/14/19 07:25 04/14/19 08:45 Glucose (Fingerstick) 89 mg/dL (70-99) White Blood Count 8.0 x10^3/uL (4.0-11.0) 6.7 x10^3/uL (4.0-11.0) Red Blood Count 2.85 x10^6/uL (3.50-5.40) 3.01 x10^6/uL (3.50-5.40) Hemoglobin 9.0 g/dL (12.0-15.5) 9.3 g/dL (12.0-15.5) Hematocrit 26.8 % (36.0-47.0) 28.9 % (36.0-47.0) Mean Corpuscular Volume 94 fL (79-100) 96 fL (79-100) Mean Corpuscular Hemoglobin 32 pg (25-35) 31 pg (25-35) Mean Corpuscular Hemoglobin Concent 34 g/dL (31-37) 32 g/dL (31-37) Red Cell Distribution Width 16.2 % (11.5-14.5) 16.4 % (11.5-14.5) Platelet Count 360 x10^3/uL (140-400) 348 x10^3/uL (140-400) Neutrophils (%) (Auto) 84 % (31-73) 76 % (31-73) Lymphocytes (%) (Auto) 11 % (24-48) 16 % (24-48) Monocytes (%) (Auto) 4 % (0-9) 6 % (0-9) Eosinophils (%) (Auto) 0 % (0-3) 1 % (0-3) Basophils (%) (Auto) 1 % (0-3) 1 % (0-3) Neutrophils # (Auto) 6.7 x10^3/uL (1.8-7.7) 5.1 x10^3/uL (1.8-7.7) Lymphocytes # (Auto) 0.9 x10^3/uL (1.0-4.8) 1.0 x10^3/uL (1.0-4.8) Monocytes # (Auto) 0.3 x10^3/uL (0.0-1.1) 0.4 x10^3/uL (0.0-1.1) Eosinophils # (Auto) 0.0 x10^3/uL (0.0-0.7) 0.1 x10^3/uL (0.0-0.7) Basophils # (Auto) 0.1 x10^3/uL (0.0-0.2) 0.1 x10^3/uL (0.0-0.2) Sodium Level 140 mmol/L (136-145) 144 mmol/L (136-145) Potassium Level 3.4 mmol/L (3.5-5.1) 3.5 mmol/L (3.5-5.1) Chloride Level 102 mmol/L (98-107) 108 mmol/L (98-107) Carbon Dioxide Level 29 mmol/L (21-32) 30 mmol/L (21-32) Anion Gap 9 (6-14) 6 (6-14) Blood Urea Nitrogen 3 mg/dL (7-20) 3 mg/dL (7-20) Creatinine 0.7 mg/dL (0.6-1.0) 0.5 mg/dL (0.6-1.0) Estimated GFR (Cockcroft-Gault) 79.2 116.7 Glucose Level 102 mg/dL (70-99) 77 mg/dL (70-99) Calcium Level 8.8 mg/dL (8.5-10.1) 8.8 mg/dL (8.5-10.1) Troponin I Quantitative < 0.017 ng/mL (0.000-0.055) Magnesium Level 1.8 mg/dL (1.8-2.4) Iron Level 146 ug/dL (50-170) Total Iron Binding Capacity 166 ug/dL (250-450) Iron Saturation 88 % (15-34) Ferritin 482 ng/mL (8-252) Total Bilirubin 0.3 mg/dL (0.2-1.0) Direct Bilirubin 0.1 mg/dL (0.0-0.2) Aspartate Amino Transf (AST/SGOT) 13 U/L (15-37) Alanine Aminotransferase (ALT/SGPT) < 6 U/L (14-59) Alkaline Phosphatase 82 U/L (46-116) HG-Ddn-U-Type Natriuretic Peptide 1616 pg/mL (0-449) Total Protein 6.5 g/dL (6.4-8.2) Albumin 2.5 g/dL (3.4-5.0) Thyroid Stimulating Hormone (TSH) 0.656 uIU/mL (0.358-3.74) Lactic Acid Level 0.5 mmol/L (0.4-2.0) Laboratory Tests Test 04/13/19 21:15 04/13/19 21:20 04/14/19 07:25 04/14/19 08:45 Glucose (Fingerstick) 89 mg/dL (70-99) White Blood Count 8.0 x10^3/uL (4.0-11.0) 6.7 x10^3/uL (4.0-11.0) Red Blood Count 2.85 x10^6/uL (3.50-5.40) 3.01 x10^6/uL (3.50-5.40) Hemoglobin 9.0 g/dL (12.0-15.5) 9.3 g/dL (12.0-15.5) Hematocrit 26.8 % (36.0-47.0) 28.9 % (36.0-47.0) Mean Corpuscular Volume 94 fL (79-100) 96 fL (79-100) Mean Corpuscular Hemoglobin 32 pg (25-35) 31 pg (25-35) Mean Corpuscular Hemoglobin Concent 34 g/dL (31-37) 32 g/dL (31-37) Red Cell Distribution Width 16.2 % (11.5-14.5) 16.4 % (11.5-14.5) Platelet Count 360 x10^3/uL (140-400) 348 x10^3/uL (140-400) Neutrophils (%) (Auto) 84 % (31-73) 76 % (31-73) Lymphocytes (%) (Auto) 11 % (24-48) 16 % (24-48) Monocytes (%) (Auto) 4 % (0-9) 6 % (0-9) Eosinophils (%) (Auto) 0 % (0-3) 1 % (0-3) Basophils (%) (Auto) 1 % (0-3) 1 % (0-3) Neutrophils # (Auto) 6.7 x10^3/uL (1.8-7.7) 5.1 x10^3/uL (1.8-7.7) Lymphocytes # (Auto) 0.9 x10^3/uL (1.0-4.8) 1.0 x10^3/uL (1.0-4.8) Monocytes # (Auto) 0.3 x10^3/uL (0.0-1.1) 0.4 x10^3/uL (0.0-1.1) Eosinophils # (Auto) 0.0 x10^3/uL (0.0-0.7) 0.1 x10^3/uL (0.0-0.7) Basophils # (Auto) 0.1 x10^3/uL (0.0-0.2) 0.1 x10^3/uL (0.0-0.2) Sodium Level 140 mmol/L (136-145) 144 mmol/L (136-145) Potassium Level 3.4 mmol/L (3.5-5.1) 3.5 mmol/L (3.5-5.1) Chloride Level 102 mmol/L (98-107) 108 mmol/L (98-107) Carbon Dioxide Level 29 mmol/L (21-32) 30 mmol/L (21-32) Anion Gap 9 (6-14) 6 (6-14) Blood Urea Nitrogen 3 mg/dL (7-20) 3 mg/dL (7-20) Creatinine 0.7 mg/dL (0.6-1.0) 0.5 mg/dL (0.6-1.0) Estimated GFR (Cockcroft-Gault) 79.2 116.7 Glucose Level 102 mg/dL (70-99) 77 mg/dL (70-99) Calcium Level 8.8 mg/dL (8.5-10.1) 8.8 mg/dL (8.5-10.1) Troponin I Quantitative < 0.017 ng/mL (0.000-0.055) Magnesium Level 1.8 mg/dL (1.8-2.4) Iron Level 146 ug/dL (50-170) Total Iron Binding Capacity 166 ug/dL (250-450) Iron Saturation 88 % (15-34) Ferritin 482 ng/mL (8-252) Total Bilirubin 0.3 mg/dL (0.2-1.0) Direct Bilirubin 0.1 mg/dL (0.0-0.2) Aspartate Amino Transf (AST/SGOT) 13 U/L (15-37) Alanine Aminotransferase (ALT/SGPT) < 6 U/L (14-59) Alkaline Phosphatase 82 U/L (46-116) LX-Nbi-U-Type Natriuretic Peptide 1616 pg/mL (0-449) Total Protein 6.5 g/dL (6.4-8.2) Albumin 2.5 g/dL (3.4-5.0) Thyroid Stimulating Hormone (TSH) 0.656 uIU/mL (0.358-3.74) Lactic Acid Level 0.5 mmol/L (0.4-2.0) Brief Hospital Course Ms Recio is an 89 year old female with history of new recent seizure disorder, diverticulitis with recent bowel perforation and diverting colostomy in the past year, and Parkinson disease who presented to ED on 04/13/19 in the evening with acute hypoxia requiring 4L NCO2 to maintain 90% O2 saturations and reported seizure activity en-route to SNF. She was admitted to [facility] and underwent long-term video EEG monitoring showing several electrographic seizures characterized by facial twitching, left head and eye deviation with progression to more generalized tonic-clonic movements, lasting as long as 5 minutes requiring lorazepam. She continued to have seizures on levetiracetam 1500 mg twice a day and was subsequently switched to lacosamide 100 mg twice a day. She is no longer on the levetiracetam. She was sent to [facility], and then was transferred to [facility] to be closer to family and had a seizure en route. This is the second seizure the patient during the transportation process. After the first seizure, the patient was brought to where she was given a dose of Vimpat oral and then placed in ambulance when she had a second generalized seizure. 10 mg midazolam administered by EMS en-route to [facility]. ED physician found patient obtunded with respiratory depression and sluggish pupils. Additional history obtained from family members and medical record. Family member states patient seizures were fairly well-controlled prior to transfer but that apparently motion of the ambulance is know to triggers the patient seizures. In ED found with CXR showing coarse interstitial markings, K of 3.4, Hb 9, troponin negative. K replaced. Patient is awakening well, still doesn't have an appetite. She was off O2 overnight. Seen by [employer], no swallowing or vocalization difficulties. Seen by neurology in consultation, recommended continuing lacosamide and prn ativan only for breakthrough seizure lasting > 5 minutes. A/P: Acute hypoxic respiratory failure - with abnormal CXR, will r/o infection, checked procalcitonin. BNP only mildly elevated. Wean O2 as tolerated. Likely this was 2/2 midazolam administration Seizure - witness by EMS. Loaded with vimpat. Neurology consulted by ED. Does not sound like status epilepticus. Seizure activity can be difficult to assess with h/o Parkinson disease as well Parkinson disease - on QID sinemet as well as daily donepezil and memantine H/o diverticulitis with recent bowel perforation and diverting colostomy - ostomy output and care are WNL Hypokalemia - replaced oral and IV H/o C difficile - no further diarrhea, monitor DNR/DNI signed paperwork in house I think further delaying her trip to SNF will expose her to hospital acquired infections, particularly with her history of c. difficile. I have discussed with her daughter that given her experience with EMS the past 2 transport cycles that she must lay her mother back and turn her head, wait for seizure activity to pass and will give lorazepam FL for seizures lasting greater than 5 minutes. She will be ok for private transport to SNF. Greater than 135 minutes spent on same day admit and d/c Discharge Information Condition at Discharge: Improved Follow Up: Weeks (1) Disposition/Orders: D/C to Another Facility Scheduled Carbidopa/Levodopa (Carbidopa-Levodopa 25-100 Tab) 1 Each Tablet, 1 EACH PO 4XDAY for parkinsons, (Reported) 1 TABLET 4 TIMES DAILY Entered as Reported by: TONJA GRIFFIN RN on 04/14/19153 Last Action: Continued on 04/14/19800 by KEYANNA HARO MD Donepezil Hcl (Aricept) 10 Mg Tablet, 1 TAB PO QHS for DIMENTIA, #30 Ref 5 (Reported) Entered as Reported by: TONJA GRIFFIN RN on 04/14/19153 Last Action: Continued on 04/14/19800 by KEYANNA HARO MD Escitalopram Oxalate (Lexapro) 10 Mg Tablet, 1 TAB PO DAILY for SEIZURES, #90 Ref 3 (Reported) Entered as Reported by: TONJA GRIFFIN RN on 04/14/19153 Last Action: Converted on 04/14/19800 by KEYANNA HARO MD Lacosamide (Vimpat) 100 Mg Tablet, 100 MG PO BID for seizures, (Reported) Entered as Reported by: TONJA GRIFFIN RN on 04/14/19355 Last Action: Converted on 04/14/19800 by KEYANNA HARO MD Levothyroxine Sodium (Synthroid) 50 Mcg Tablet, 50 MCG PO DAILYAC for THYROID SUPPLEMENT, #30 Ref 0 (Reported) Entered as Reported by: TONJA GRIFFIN RN on 04/14/19153 Last Action: Continued on 04/14/19800 by KEYANNA HARO MD Memantine Hcl (Namenda) 10 Mg Tablet, 1 TAB PO BID for DEMENTIA, #180 Ref 1 (Reported) Entered as Reported by: TONJA GRIFFIN RN on 04/14/19153 Last Action: Continued on 04/14/19800 by KEYANNA HARO MD Metoprolol Succinate (Metoprolol Succinate ( Xl )) 25 Mg Tab.er.24h, 1 TAB PO DAILY for HTN, #30 Ref 5 (Reported) 12.5 DAILY Entered as Reported by: TONJA GRIFFIN RN on 04/14/19153 Last Action: Continued on 04/14/19800 by KEYANNA HARO MD Scheduled PRN Lorazepam (Lorazepam) 1 Mg Tablet, 1 TAB PO PRN PRN for seizure > 5 MIN for 30 Days, #10 Ref 2 ONLY ADMINISTER PER RECTUM FOR SEIZURE LASTING GREATER THAN 5 MINUTES Prescribed by: KEYANNA HARO MD on 04/14/19 1253 Discontinued Medications Cephalexin (Keflex) 250 Mg Capsule, 1 CAP PO TID for UTI, #21 (Reported) Entered as Reported by: TONJA GRIFFIN RN on 04/14/19153 Last Action: New Order on 04/14/19153 by TONJA GRIFFIN RN Clorazepate Dipotassium (Clorazepate Dipotassium) 3.75 Mg Tablet, 3.75 MG PO PRN PRN for SEIZURES, (Reported) Entered as Reported by: TONJA GRIFFIN RN on 04/14/19153 Last Action: New Order on 04/14/19153 by JARRED COLES CHRISTOPHER S MD Apr 14, 2019 13:00
--- NOTE | 2019-04-14 15:38 | NUR ---
pt was discharged from hospital today, her daughter, granddaughter, and were going to take her to [facility] in their own personal vehicle. they were instructed by Dr Kingston with instructions on seizure precautions and what to do in the case of a seizure during transportation. the pt family was given a script for lorazepam prn. wheeled down to the emergnecy entrance. Phani Nice RN
[2019-04-14] MEDS ORDERED: DONEPEZIL HCL 10 MG TABLET. PO SCH (21:00)
== END 2019-04-14 16:02 | DRG 100 ==
LOC: ER 20:54 → 6 SOUTH 22:00
PROVIDERS: ADMIT Internal Medicine; ATTEND Internal Medicine
DX: G40.909 Epilepsy, unspecified, not intractable, without status epilepticus (principal); J96.01 Acute respiratory failure with hypoxia; E87.6 Hypokalemia; F02.80 Dementia in other diseases classified elsewhere, unspecified severity, without behavioral disturbance, psychotic disturbance, mood disturbance, and anxiety; F32.9 Major depressive disorder, single episode, unspecified; G20 Parkinson's disease; I10 Essential (primary) hypertension; Z66 Do not resuscitate; Z79.899 Other long term (current) drug therapy; Z90.710 Acquired absence of both cervix and uterus; Z93.3 Colostomy status
CPT/HCPCS: 36415; 71045; 80048; 80076; 82728; 82962; 83540; 83550; 83605; 83735; 83880; 84443; 84484; 85025; 93005; J3480; J7030; 92610; 99285-25; G0378